=== PATIENT | male | born 1935 | race African-American/Black ===

== ENCOUNTER 2018-02-22 16:42 | Inpatient (IN) | payer OTHER ==
[2018-02-22] VITALS (13 sets, daily range): BP systolic 124–168; BP diastolic 74–105; TEMP 98.1–98.2
[~2018-02-22] VITALS: Ht 165.1 cm; Wt 66.8 kg
[~2018-02-22 16:42] MED LIST: CALCIUM/VITAMIN1 CAP PO; CETIRIZINE10 MG PO; CLOPIDOGREL75 MG PO; COMBIGAN0.2 MG/0.5 OP; DITROPAN XL15 M1 PO; DULCOLAX10 MG RE; ESCI10TA PO; ESOMEPRAZOLE MA20 MG PO; GABA300C2 PO; KEPPRA 500MG TAB PO; LATANOPROST0.005 % OP; LORA0.5T17 PO; MAGN400T4 PO; MAGNESIUM OXID400 M1 PO; QUET25TA2 PO; QUETIAPINE25 MG PO; SIMV40TA57 PO; STOOL SOFTNR100 MG PO; TAMSULOSIN0.4 MG PO; TRAM50TA PO; UNITH DIRECT50 MCG PO; ZANTAC300 MG PO; [UNRECOGNIZED DRUG - OTHER] PO
[2018-02-22 18:07] LABS: PLATELET COUNT 225 K/uL (142-355)
[2018-02-22 18:27] LABS: POTASSIUM 3.4 mmol/L (3.6-5.2); SODIUM 144 mmol/L (136-145)
[2018-02-22 20:18] LABS: PARTIAL THROMBOPLASTIN TIME 25.9 SECONDS (24.5-33.6)
[2018-02-23] VITALS (25 sets, daily range): BP systolic 130–178; BP diastolic 69–110; TEMP 97.8–98.4; Ht 165.1 cm; Wt 66.8 kg
[2018-02-23 05:45] LABS: PLATELET COUNT 222 K/uL (142-355)
[2018-02-23 05:55] LABS: POTASSIUM 3.4 mmol/L (3.6-5.2)
[2018-02-23] MEDS ORDERED: RANI150T78 PO (08:45)
[2018-02-23] MEDS ORDERED: METAMUCIL0.52 GM PO (08:56)
[2018-02-23] MEDS ORDERED: ZIPR20IN IM (09:00)
[2018-02-23] MEDS ORDERED: BRIM0.2S OPTH (09:09)
[2018-02-23] MEDS ORDERED: ALUM-67 PO (10:13)
[2018-02-23] MEDS ORDERED: TYLENOL325 MG OR (10:15)
[2018-02-23] MEDS ORDERED: MILK OF MAGNESI1 SU1 PO (10:16)
[2018-02-23] MEDS ORDERED: INSUINJ20 SC (10:20)
[2018-02-24] VITALS (24 sets, daily range): BP systolic 59–165; BP diastolic 42–117; TEMP 97.8–98.5
[2018-02-24 05:59] LABS: PLATELET COUNT 201 K/uL (142-355)
[2018-02-24 06:15] LABS: POTASSIUM 2.8 mmol/L (3.6-5.2)
[2018-02-25] VITALS (24 sets, daily range): BP systolic 130–181; BP diastolic 80–105; TEMP 97.8–98.9
[2018-02-25 08:26] LABS: PLATELET COUNT 221 K/uL (142-355)
[2018-02-25 08:39] LABS: POTASSIUM 4.2 mmol/L (3.6-5.2)
[2018-02-26] VITALS (24 sets, daily range): BP systolic 96–156; BP diastolic 55–94; TEMP 97.4–98.5
[2018-02-26 08:20] LABS: PLATELET COUNT 200 K/uL (142-355)
[2018-02-26 08:59] LABS: POTASSIUM 3.9 mmol/L (3.6-5.2)
[2018-02-27] VITALS (22 sets, daily range): BP systolic 101–149; BP diastolic 63–104; TEMP 97.2–98.4
[2018-02-27 08:19] LABS: PLATELET COUNT 198 K/uL (142-355)
[2018-02-27 08:36] LABS: POTASSIUM 4.3 mmol/L (3.6-5.2)
[2018-02-28] VITALS (24 sets, daily range): BP systolic 84–159; BP diastolic 64–117; TEMP 97.2–99.8
[2018-02-28 05:27] LABS: PLATELET COUNT 206 K/uL (142-355)
[2018-02-28 05:41] LABS: POTASSIUM 4.3 mmol/L (3.6-5.2)
[2018-03-01] VITALS (22 sets, daily range): BP systolic 90–140; BP diastolic 67–93; TEMP 97.7–98.9
[2018-03-01 06:17] LABS: PLATELET COUNT 185 K/uL (142-355)
[2018-03-01 06:29] LABS: POTASSIUM 3.9 mmol/L (3.6-5.2)
[2018-03-02] VITALS (27 sets, daily range): BP systolic 100–160; BP diastolic 47–110; TEMP 97.8–101.1
[2018-03-02 05:48] LABS: PLATELET COUNT 181 K/uL (142-355)
[2018-03-02 06:00] LABS: POTASSIUM 3.8 mmol/L (3.6-5.2)
[2018-03-03] VITALS (26 sets, daily range): BP systolic 70–145; BP diastolic 52–99; TEMP 97.8–100.5
[2018-03-03 06:34] LABS: PLATELET COUNT 188 K/uL (142-355)
[2018-03-03 06:47] LABS: POTASSIUM 4.4 mmol/L (3.6-5.2)
[2018-03-04] VITALS (29 sets, daily range): BP systolic 71–127; BP diastolic 47–75; TEMP 97.5–100.3
[2018-03-04 06:06] LABS: PLATELET COUNT 173 K/uL (142-355)
[2018-03-04 14:57] LABS: POTASSIUM 3.8 mmol/L (3.6-5.2)
[2018-03-05] VITALS (23 sets, daily range): BP systolic 91–133; BP diastolic 58–99; TEMP 98–98.8
[2018-03-05 06:21] LABS: PLATELET COUNT 167 K/uL (142-355)
[2018-03-05 06:35] LABS: POTASSIUM 3.9 mmol/L (3.6-5.2)
[2018-03-06] VITALS (11 sets, daily range): BP systolic 95–1052; BP diastolic 52–87; TEMP 97.8–98.9
[2018-03-06 06:04] LABS: PLATELET COUNT 207 K/uL (142-355)
[2018-03-06 06:24] LABS: POTASSIUM 4.1 mmol/L (3.6-5.2)
[2018-03-06] MEDS ORDERED: KEPPRA1000 MG PEG (17:33)
[2018-03-06] MEDS ORDERED: HYDRALAZINE25 MG PEG (17:34)
[2018-03-06] MEDS ORDERED: 904272561 PEG (17:35)
[2018-03-06] MEDS ORDERED: DITROPAN XL15 M1 PEG (17:36)
[2018-03-06] MEDS ORDERED: LEXAPRO10 MG PEG (17:37)
[2018-03-06] MEDS ORDERED: SEROQUEL50 MG PEG (17:38)
[2018-03-06] MEDS ORDERED: METAMUCIL0.52 GM PEG (17:38)
[2018-03-06] MEDS ORDERED: LEVO0.0529 PEG (17:40)
[2018-03-06] MEDS ORDERED: SIMV40TA57 PEG (17:41)
[2018-03-06] MEDS ORDERED: TAMS0.4C PEG (17:41)
[2018-03-06] MEDS ORDERED: CLOP75TA2 PEG (17:42)
[2018-03-06] MEDS ORDERED: LEVE100S PEG (17:43)
[2018-03-06] MEDS ORDERED: PANTOPRAZOLE 40MG TA PEG (17:44)
[2018-03-06] MEDS ORDERED: SOD CHLORIDE1 GM PEG (17:44)
[2018-03-06] MEDS ORDERED: REQUIP0.25 MG PEG (17:45)
[2018-03-06] MEDS ORDERED: GABA100C2 PEG (17:45)
[2018-03-06] MEDS ORDERED: MAG OXIDE400 M2 PEG (17:47)
[2018-03-06] MEDS ORDERED: HYDRALAZINE20 MG/ML IJ (17:48)
[2018-03-06] MEDS ORDERED: TYLENOL RE (17:52)
[2018-03-06] MEDS ORDERED: INSU100P SC (17:53)
[2018-03-06] MEDS ORDERED: ENSURE PEG (17:57)
== END 2018-03-06 13:30 | disposition other institution (70) | DRG 100 ==
LOC: ICU 16:42
PROC: 0DH63UZ Insertion of Feeding Device into Stomach, Percutaneous Approach (ICD-10-PCS; principal; 2018-03-02)
DX: G40.89 Other seizures (principal); G93.49 Other encephalopathy; E46 Unspecified protein-calorie malnutrition; E83.42 Hypomagnesemia; I10 Essential (primary) hypertension; E78.4 Other hyperlipidemia; N40.0 Benign prostatic hyperplasia without lower urinary tract symptoms; I95.89 Other hypotension; E11.9 Type 2 diabetes mellitus without complications; K21.9 Gastro-esophageal reflux disease without esophagitis; E03.8 Other specified hypothyroidism; J30.89 Other allergic rhinitis; Z86.73 Personal history of transient ischemic attack (TIA), and cerebral infarction without residual deficits; R13.12 Dysphagia, oropharyngeal phase; R26.89 Other abnormalities of gait and mobility; R62.7 Adult failure to thrive; E87.6 Hypokalemia; E88.09 Other disorders of plasma-protein metabolism, not elsewhere classified
CPT/HCPCS: 36415; 36591; 80048; 80053; 81000; 82140; 82542; 82550; 82553; 82570; 82962; 83605; 83615; 83735; 83880; 83930; 83935; 84300; 84443; 84484; 85027; 85610; 85730; 87070; 87077; 87185; 87186; 87205; 93005; 94760; J0360; J1940; J1953; J2001; J2060; J2270; J2704; J3475; J3480; J3486; J3490

== ENCOUNTER 2018-03-20 11:15 | Inpatient (IN) | payer OTHER ==
[2018-03-20] VITALS (20 sets, daily range): BP systolic 82–130; BP diastolic 47–83; TEMP 98.8–99.3; Ht 165.1 cm; Wt 61.2 kg
[~2018-03-20] VITALS: Ht 165.1 cm; Wt 61.2 kg
[~2018-03-20 11:15] MED LIST changes: +904272561 PEG; +ALUM-67 PO; +BRIM0.2S OPTH; +CLOP75TA2 PEG; +DITROPAN XL15 M1 PEG; +ENSURE PEG; +GABA100C2 PEG; +HYDRALAZINE20 MG/ML IJ; +HYDRALAZINE25 MG PEG; +INSU100P SC; +INSUINJ20 SC; +KEPPRA1000 MG PEG; +LEVE100S PEG; +LEVO0.0529 PEG; +LEXAPRO10 MG PEG; +MAG OXIDE400 M2 PEG; +METAMUCIL0.52 GM PEG; +METAMUCIL0.52 GM PO; +MILK OF MAGNESI1 SU1 PO; +PANTOPRAZOLE 40MG TA PEG; +RANI150T78 PO; +REQUIP0.25 MG PEG; +SEROQUEL50 MG PEG; +SIMV40TA57 PEG; +SOD CHLORIDE1 GM PEG; +TAMS0.4C PEG; +TYLENOL RE; +TYLENOL325 MG OR; +ZIPR20IN IM
--- NOTE | 2018-03-20 14:48 | NUR ---
PATIENT YELLING OUT AND REMOVING BP CUFF. MULTIPLE ATTEMPTS TO CLIMB OUT OF BED. TRIED TO REDIRECT BUT HAVE BEEN UNSUCCESSFUL. HALDOL 5MG IV GIVEN AT THIS TIME.
--- NOTE | 2018-03-20 15:03 | NUR ---
VERIFIED PEG PLACEMENT WITH AIR BOLUS. KAYEXALATE GIVEN WITH H2O FLUSH BEFORE AND AFTER.
[2018-03-21] VITALS (24 sets, daily range): BP systolic 98–156; BP diastolic 52–133; TEMP 98.5–99.9
--- NOTE | 2018-03-21 00:17 | NUR ---
03/20/2018 @ 2245 PT. TALKING LOUDLY AND PULLING AT IV SITE AND ATTEMPTING TO CLIMB OUT OF BED, ATIVAN 1MG GIVEN IV. WILL CONTINUE TO MONITOR. 03/20/2018 @ 2330 PT. RESTING QUIETLY WITH EYES CLOSED. NAD NOTED. WILL CONTINUE TO MONITOR.
[2018-03-21 05:41] LABS: PLATELET COUNT 207 K/uL (142-355)
--- NOTE | 2018-03-21 05:57 | NUR ---
PATIENT IS IN ICU AND SCREENED AND PRESENTLY NO DIET ORDER. IBW 136+/-10% AND IS AT 153.5 LBS. AND IS 113%IBW, BMI 25,6 OVERWIEGHT FOR HT/WT RATIO. KCAL NEEDS [phone], PROTEIN NEEDS 61-71 GRAMS, FLUID NEEDS = [phone] ML/CC PER DAY. ADD A DIET ORDER AND IF NOT EATING NEDS NUTRITION INTERVENTION TO MEET THE KCAL, PROTEIN AND FLUID NEEDS ABOVE. ADMITTED WITH RESPIRATOY FAILURE AND ELEVATED WBC.
[2018-03-21 07:07] LABS: POTASSIUM 4.6 mmol/L (3.6-5.2)
--- NOTE | 2018-03-21 08:30 | NUR ---
PT RESTING QUIETLY HOB UP. RECIEVED ATIVAN THIS AM BEFORE SHIFT CHANGE MEDS EFFECTIVE RESTING QUIETLY. JUDE LIZ CAFETERIA ASSOCIATE AND DR SINGH VISITED CHECKED PT.
--- NOTE | 2018-03-21 10:30 | NUR ---
TURNED AND REPOSITIONED IN BED HOB UP RESTING ON LEFT SIDE. AWAKE AT TIMES GARABLED SPEECH.
--- NOTE | 2018-03-21 12:03 | NUR ---
FAMILY MEMBERS CALLED LEFT PASSWORD. REPORT PT CONDITION. X RAY DEPT HERE ABD SERIES DONE. PT AWAKE, TALKING UNABLE TO UNDERSTAND.
--- NOTE | 2018-03-21 14:11 | NUR ---
CALLED TO JUDE LIZ TENNIS BALL COVERER HAND REPORT FINDINGS FROM ACUTE ABD. RECIEVED NEW ORDERS.
--- NOTE | 2018-03-21 14:53 | NUR ---
ATTEMPT TO EXPLAIN PROCEDURE TO PATIENT, PATIENT HAS BEEN CALLING OUT GETTING LOUDER. PERFRORMED IN AND OUT CATH 10 FR RED RUBBER CATH. AFTER CLEANING PT. OBTAINED CLEAR GERARDO URINE SPEC TO LAB. PT TURNED TO LEFT SIDE RECIEVED FLEETS ENEMA ORDERED. PATIENT ON HIS LEFT SIDE WILL TRY TO HOLD ON LEFT SIDE.
--- NOTE | 2018-03-21 15:45 | NUR ---
INC BROWN SOFT STOOL CLEANED X3 SMALL AMOUT EACH TIME. RESTING EASIER MEDS EFFECTIVE. RICHA CARE DONE. FEET UP ON PILLOWS RIGHT HEEL HAS BLISTER HEELS OFF BED.
--- NOTE | 2018-03-21 16:10 | NUR ---
RESTING EASIER, MEDS EFFECTIVE. HOB UP.
--- NOTE | 2018-03-21 17:36 | NUR ---
PT PASSED MOD AMOUNT SOFT LIQUID BROWN STOOL TURNED AND REPOSITIONED CLEANED SPEC TO LAB FOR OCCULT BLOOD. . SKIN CARE DONE. FEET UP ON PILLOWS. HEELS OFF BED.
[2018-03-22] VITALS (23 sets, daily range): BP systolic 138–168; BP diastolic 70–90; TEMP 97.9–100.2
--- NOTE | 2018-03-22 01:05 | NUR ---
PT INCONTIENT OF STOOL. PT HAD LARGE BROWN STOOL. PT WAS CLEANED AND CALAMAZINE WAS APPLIED TO HIS BUTTOCKS. PT WAS REPOSITIONED TO HIS BACK.
[2018-03-22 05:43] LABS: PLATELET COUNT 251 K/uL (142-355)
[2018-03-22 05:58] LABS: POTASSIUM 3.5 mmol/L (3.6-5.2)
--- NOTE | 2018-03-22 10:11 | NUR ---
0927-RADIOLOGY AT BEDSIDE FOR CHEST X RAY
--- NOTE | 2018-03-22 12:41 | NUR ---
PT AGITATED, HOLLERING OUT, AND TRYING TO PULL AT IV TUBING AND TELEMETRY. ASSESSED FOR PAIN, NO S/S OF PAIN NOTED AT THIS TIME. ATIVAN 1MG IV GIVEN, WILL CONTINUE TO MONITOR.
--- NOTE | 2018-03-22 20:00 | NUR ---
PT HAS NC ON AT 5LPM BUT IS A MOUTH BREATHER, O2 SAT DROPPED TO 87-84% ON NC, RESPIRATORY CALLED TO BEDSIDE. NO ACUTE DISTRESS NOTED BUT PT CONTINUES TO BREATH RAPIDLY.
--- NOTE | 2018-03-22 20:08 | NUR ---
PT RESTLESS AND AGITATED, RESP RATE RAPID 40 AND RESPIRATORY AT BEDSIDE MENTIONED IN PREVIOUS NOTES. GAVE PT ATIVAN 1MG IVP PRN. WILL MONITOR CLOSELY, RAILS UP X3, BED IN LOW POSITION, HOB ELEVATED, NO ACUTE DISTRESS NOTED.
--- NOTE | 2018-03-22 20:09 | NUR ---
SPO2 DROPPED TO 84% ON N/C @ 5 LPM. PLACED PT ON NRB @ 100% FIO2 WITHA SPO2 OF 97%. TOLS WELL.
--- NOTE | 2018-03-22 20:20 | NUR ---
PT APPEARS ALITTLE MORE CALM SINCE PRN MEDICATION GIVEN BUT IS STILL RESTLESS. WILL CONTINUE TO MONITOR CLOSELY, RAILS UP X3, BED IN LOW POSITION.
--- NOTE | 2018-03-22 21:30 | NUR ---
CHANGED NRB TO V/M @ 50% FIO2. GTO491%, HR 98. NURSE AT BEDSIDE. TOLS WELL.
--- NOTE | 2018-03-22 23:14 | NUR ---
PT RESTLESS AT TIMES AND TALKING OUT LOUDLY, NO ACUTE DISTRESS NOTED, RESP RATE REMAINS RAPID, IV INTACT WITH FLUID ONGOING, VENTI-MASK IN USE. CHANGED PT'S DEPEND AND REPOSITIONED PT TO L SIDE, ATTEMPTED TO ELEVATED FEET OFF OF BED ON PILLOWS BUT PT MOVES FEET OFF OF PILLOWS, WILL CONTINUE TO MONITOR CLOSELY, RAILS UP X3, BED IN LOW POSITION.
[2018-03-23] VITALS (25 sets, daily range): BP systolic 124–169; BP diastolic 76–97; TEMP 98.3–101
--- NOTE | 2018-03-23 00:16 | NUR ---
PT VERY RESTLESS AND APPEARS AGITATED, REPOSITIONING IN BED DID NOT HELP, HOLDING ARMS UP IN AIR AND PULLING VENTI-MASK OFF AT TIMES, MUMBLING OUT LOUD CONSTANTLY. ELECTRONIC PAGE MAKEUP SYSTEM OPERATOR REMAINS AT PT'S BEDSIDE. PEG TUBE INTACT TO ABD, IV INTACT.
--- NOTE | 2018-03-23 00:30 | NUR ---
PT HAS BEEN RESTLESS AND AGITATED FOR APPROX 15 MINUTES, TALKING OUT LOUDLY CONTANTLY, MOVING ARMS AROUND AND PULLING AT CORDS, REPOSITIONED PT WITH NO IMPROVEMENT. GAVE HALDOL 5MG SLOW IVP PER PRN ORDERS, WILL CONTINUE TO MONITOR CLOSELY. IV INTACT, DEPEND DRY, RESP RATE REMAINS RAPID, VENTI-MASK IN USE, RAILS UP X3, BED IN LOW POSITION.
--- NOTE | 2018-03-23 00:55 | NUR ---
PT REMAINS RESTLESS AND AGITATED, RESP RATE REMAINS RAPID, PT DEPEND CHANGED AND PT REPOSITIONED, IV INTACT, SOCIAL MEDIA EDITOR IN USE, VITALS BEING MONITORED. PT TALKING OUT LOUD ALMOST CONSTANTLY AND MOVING HANDS ALL AROUND. REMAINS ON VENTI-MASK WITH O2 SAT OF 97%. WILL MONITOR, RAILS UP X3, BED IN LOW POSITION.
--- NOTE | 2018-03-23 01:53 | NUR ---
RESTING QUIETLY IN BED WITH EYES CLOSED, NO S/S OF PAIN OR DISTRESS NOTED, RESP RATE 34 NONLABORED, VENIT-MASK IN USE WITH FIO2 OF 50% SAT 100%, DEPEND DRY, IV INTACT TO R AC WITH NS INFUSING AT 75ML/HR, FEET ON PILLOW BUT PT MOVES FEET OFF PILLOWS(RED SPOTS ON TOP OF TOES ON L FOOT AND RED SPOT ON HEEL OF R FOOT), WILL CONTINUE TO MONITOR CLOSELY, RAILS UP X3, BED IN LOW POSITION.
--- NOTE | 2018-03-23 04:30 | NUR ---
PT VERY AGITATED AND RESTLESS, MUMBLING OUT LOUDLY CONSTANTLY, ATTEMPTED TO REASSURE PT BUT PT REMAINS AGITATED. DEPEND CHANGED DUE TO INCONTINENT OF URINE AND PT REPOSITIONED. REMAINS RESTLESS AND AGITATED. PT BECOMES RESTLESS WHEN HE NEEDS DEPEND CHANGED AND THEN BECOMES EVEN MORE RESTLESS AND AGITATED WHEN STAFF CHANGES HIM. RESISTS STAFF WHILE CHANGING.
--- NOTE | 2018-03-23 04:51 | NUR ---
PT REMAINS AGITATED AND VERY RESTLESS, MUMBLING OUT LOUDLY ALMOST CONSTANTLY. MOUTH CARE PROVIDED AND PT REPOSITIONED AGAIN IN ATTEMPT TO CALM PT. NO CHANGE IN PT. RESP RATE REMAINS RAPID. IV INTACT WITH FLUID ONGOING, RESP RATE NONLABORED, VENTI-MASK IN USE, TAPPER SUPERVISOR IN USE, VITALS BEING MONITORED, WILL MONITOR CLOSELY, RAILS UP X3, BED IN LOW POSITION. PLACE PT'S FEET ON PILLOWS TO ELEVATED OFF OF BED BUT PT MOVES FEET OFF OF PILLOWS.
--- NOTE | 2018-03-23 05:42 | NUR ---
PT REMAINS VERY RESTLESS AND AGITATED, MUMBLING OUT LOUDLY IN BED CONSTANTLY, REASSURED PT WITH NO CHANGE IN STATUS, PT BECOMES MORE AGITATED WHEN STAFF GIVES CARE TO HIM. GAVE ATIVAN 1MG IVP PRN AT THIS TIME, WILL MONITOR CLOSELY.
[2018-03-23 05:48] LABS: PLATELET COUNT 265 K/uL (142-355)
--- NOTE | 2018-03-23 06:00 | NUR ---
PT CONTINUES TO BE VERY RESTLESS AND AGITATED, MOVING AROUND IN BED AND MUMBLING CONSTANTLY.
--- NOTE | 2018-03-23 06:20 | NUR ---
RESTING IN BED WITH EYES CLOSED, NO S/S OF PAIN OR DISTRESS NOTED, IV INTACT WITH FLUID ONGOING, RESP RATE REMAINS RAPID, VENTI-MASK IN USE, NUCLEAR MEDICINE TECHNICIAN IN USE, VITALS BEING MONITORED, PT REPOSITIONED TO R, DEPEND CHANGED, WILL MONITOR, RAILS UP X3, BED IN LOW POSITION.
[2018-03-23 06:55] LABS: POTASSIUM 3.1 mmol/L (3.6-5.2)
--- NOTE | 2018-03-23 08:06 | NUR ---
PT AWAKE REPOSITIONED IN BED RESP RAPID 38 MIN SAT 97%. HOB UP. RECIEVED AM LABS REPORT TO JUDE LIZ PHOTOGRAPHIC LABORATORY SUPERVISOR.
--- NOTE | 2018-03-23 08:39 | NUR ---
LABS REPORTED TO JUDE LIZ GAGE MAKER. RECIEVED NEW ORDERS.
--- NOTE | 2018-03-23 10:29 | NUR ---
PATIENT RECIEVED BATH BED CHANGE. INC URINE. RICHA CARE DONE. HOB UP. CHECKED PEG NO RESIDUAL. POTASSIUM DILUTED IN 60 ML WATER GAVE TO PT VIA PEG. HOB UP TURNED ON LEFT SIDE.
--- NOTE | 2018-03-23 10:57 | NUR ---
PATIENT ANXIOUS CALLING OUT,. RESP RATE CONTINUES TO BE HIGH REPORT TO JUDE GUY. PT REPOSITIONED NO GOOD. GAVE GEODON 10 DC RGM FOR ANXIETY
--- NOTE | 2018-03-23 11:46 | NUR ---
MEDS EFFECTIVE PT RESTING QUIETLY RESP RATE HAS DROPPED TO 22 MIN.
--- NOTE | 2018-03-23 14:03 | NUR ---
REPOSITIONED ON HIS SIDE TOLD PT WHAT WE WERE ABOUT TO DO. PT RESP RATE HAS GOTTEN A LITTLE FASTER. 30 BREATHS MIN. RESTING EASIER. NOTED WHEN CLEANING PT ACTED LIKE WAS TRYING TO HAVE A BM. CHECKED PT FOR IMPACTION, ONLY FELT SOFT STOOL. MANUALLY REMOVED SOME. NO HARD BM FELT. PT CLEANED UP AND REPOSITIONED.
--- NOTE | 2018-03-23 16:49 | NUR ---
PT BECOMING MORE RESTLESS INCREASED RESP. RATE 40 MIN. O2 SAT 96%. WEARING VENTI MASK. ATIVAN 1 MG GIVEN IV FOR ANXIETY. ASSISTED WITH POSITION CHANGE.
--- NOTE | 2018-03-23 17:55 | NUR ---
RESTING A LITTLE EASIER, RESP RATE CONTINUES TO BE FAST 38 MIN SAT 95% HOB UP PT WEARING VENTI MASK.
--- NOTE | 2018-03-23 18:20 | NUR ---
CALLED TO ER REPORT PT CONDITION RAPID RESP RATE 40 MIN. RESP DEPT HERE ASKED TO LOOK AT PT NOTED RAPID BREATHING RALES LUNG SOUNDS. SPOKE WITH DR VIPUL ARMAS ORDERER FOR RACHIX WILL COME TO SEE PT.
--- NOTE | 2018-03-23 18:44 | NUR ---
RECIEVED LASIX 80 MG SLOW OVER 3 MIN ORDERED. HOB UP RESP 42 MIN. SAT 92%. DAUGHTER HERE FOR VISIT.
--- NOTE | 2018-03-23 19:01 | NUR ---
EXPLAINED TO DAUGHTER WHAT WE WERE TRYING TO DO BY GIVING LASIX. NOEMI FLUID OFF. VERBALIZED UNDERSTANDING.
--- NOTE | 2018-03-23 19:51 | NUR ---
DR MIKE MATTHEW HERE, CHECKED PT RECIEVED NEW ORDERS. TALKED WITH FAMILY MEMBERS. RESP 38 VOIDED 250 IN URINAL. RECIEVED ORDER FOR MOSHE BOWIE WORKING.
--- NOTE | 2018-03-23 20:00 | NUR ---
FAMILY MEMBERS LEFT RECIEVED NEW ORDERS. EXPLAINED PROCEDURE TO PT. HAS VOIDED X2 SINCE LASIX. CONTINUES TO HAVE RAPID RESP. PT CLEANED INSERTED 16 FR MESA CATH. GOOD URINE RETURN MESA CLAMPED OUTPUT 1200 AND STILL COMING. CATH CARE DONE MESA SECURED. LEFT CLAMPED.
--- NOTE | 2018-03-23 22:00 | NUR ---
SPOKE WITH DR. Mouna MATTHEW IN ER ABOUT PT'S AX TEMP OF 101.0 AT 2134, ALSO INFORMED HIM THAT PT'S RESP RATE IS RAPID AGAIN AT 40 WITH NO ACUTE DISTRESS, O2 SAT 99% ON VENTI-MASK WITH FIO2 OF 50%, PT HAS HAD OUTPUT OF 2200 TOTAL IN MESA WITH APPRO 1000 MORE IN MESA CATH BAG AT THIS TIME. QUALITY NURSE CLAMPING MESA TUBING FOR SHORT PERIOD AND NOW HAS UNCLAMPED IT. NEW ORDER FOR TYLENOL 650MG VIA PEG TUBE Q 6 HOURS PRN FOR FEVER OR PAIN, HOLD LASIX 40MG IVP AT 0600 ON 03/24/18. T.O. R&V DR. Mouna MATTHEW/DENI MELO RN.
--- NOTE | 2018-03-23 23:00 | NUR ---
AX TEMP IS 100.9. WILL CONTINUE TO MONITOR, ONLY SHEET ON PT AND FAN BLOWING ON PT. PT RESTING WITH EYES CLOSED BUT RESP RATE VERY RAPID 44, O2 SAT REMAINS 100-97% ON VENTI-MASK WITH FIO2 OF 50%, DOCTOR IS AWARE OF PT'S RESP RATE. RAILS UP, BED IN LOW POSITION.
[2018-03-24] VITALS (23 sets, daily range): BP systolic 120–153; BP diastolic 69–88; TEMP 98.3–99.6
--- NOTE | 2018-03-24 00:22 | NUR ---
PT LAYING IN BED WITH EYES CLOSED WITH NO ACUTE DISTRESS NOTED, IV INTACT TO R AC WITH FLUID ONGOING, RESP RATE REMAIN RAPID AT 38-40, 16F MESA PATENT DRAINING TO BEDSIDE, VENTI-MASK IN USE WITH FIO2 OF 50% AND O2 SAT OF 100%, MAINSPRING WINDER AND OILER NOT PICKING UP HEART RATE WELL SO PT NOW HOOKED UP TO PORTABLE V/S MACHINE WITH HEART RATE OF 94, PULSE OX SHOWS HEART RATE OF 96, FEET ELEVATED ON PILLOW, HOB ELEVATED, TEMP IS 99.1 AX. HOB REMAINS ELEVATED. WILL MONITOR, RAILS UP X3, BED IN LOW POSITION.
--- NOTE | 2018-03-24 01:00 | NUR ---
PT RESTING WITH EYES CLOSED, NO DISTRESS OR PAIN NOTED, IV INTACT TO R AC WITH 1/2 NS INFUSING AT 75ML/HR NO PROBLEMS NOTED TO SITE, MESA PATENT DRAINING TO BEDSIDE, RESP RATE 26 AND HAS SLOWED DOWN SOME, DENTAL HYGIENIST MOBILE COORDINATOR IN USE, VITALS BEING MONITORED, PEG TUBE INTACT TO ABD, DEPEND DRY, FEET ELEVATED ON PILLOW, WILL MONITOR, RAILS UP X3, BED IN LOW POSITION, HOB REMAINS ELEVATED.
--- NOTE | 2018-03-24 02:00 | NUR ---
PT RESTING WITH EYES CLOSED, NO DISTRESS NOTED, RESP RATE 32, VENTI-MASK IN USE, REPOSITIONED PT TO HIS BACK, FEET ELEVATED ON PILLOW, WILL MONITOR, RAILS UP X3, BED IN LOW POSITION.
--- NOTE | 2018-03-24 03:18 | NUR ---
PT RESTING WITH EYES CLOSED, NO S/S OF PAIN OR DISTRESS NOTED, IV INTACT WITH FLUID ONGOING, RESP RATE REMAINS RAPID AT 28(BUT DECREASES TO HIGH 20s-LOW 30s THEN INCREASES AGAIN OFF AND ON TO 40s), LUNGS COARSE TO AUSCULTATION, MESA PATENT DRAINING TO BEDSIDE, VITALS BEING MONITORED, VENTI-MASK WITH FIO2 OF 50% IN USE WITH O2 SAT OF 99%, PERL DEVELOPER IN USE WITH PULSE RATE OF 96, FEET ELEVATED OFF OF BED ON PILLOWS, PT HAS BEEN CALM TONIGHT AND NO AGITATION OR RESTLESSNESS NOTED DURING SHIFT. PEG TUBE INTACT TO ABD. WILL MONITOR, RAILS UP, BED IN LOW POSITION.
--- NOTE | 2018-03-24 04:00 | NUR ---
MOUTH CARE COMPLETED AT THIS TIME, PT REPOSITIONED, NO DISTRESS NOTED, IV INTACT, MESA PATENT, FEET ELEVATED ON PILLOW, CLARK DRIVER IN USE, RESP RATE REMAINS RAPID, VENTI-MASK IN USE, WILL MONITOR, RAILS UP, BED IN LOW POSITION.
[2018-03-24 05:12] LABS: PLATELET COUNT 262 K/uL (142-355)
[2018-03-24 05:26] LABS: POTASSIUM 3.2 mmol/L (3.6-5.2)
--- NOTE | 2018-03-24 07:15 | NUR ---
AWAKE WITH EYES OPEN. APPEARS TO BE LOOKING STRAIGHT UP AND REACHING UPWARD. RESPIRATORY RATE NOTED.
[2018-03-24] MEDS ORDERED: CLIN300C PO (08:12)
[2018-03-24] MEDS ORDERED: LORA0.5T17 PO (08:13)
[2018-03-24] MEDS ORDERED: TRAM50TA PO (08:15)
[2018-03-24] MEDS ORDERED: BUSPIRONE10 MG PO (08:20)
--- NOTE | 2018-03-24 10:00 | NUR ---
REPOSITIONED ON LT SIDE. RICHA AND MESA CARE COMPLETED AT THIS TIME.
--- NOTE | 2018-03-24 11:00 | NUR ---
DAUGHTER CALLED TO CHECK ON FATHERS STATUS.
--- NOTE | 2018-03-24 12:20 | NUR ---
NOTIFIED BROOKS HAMEED OF INCREASED RESPIRATORY RATE. INSTRUCTED TO GIVE GEOGON AT THIS TIME.
--- NOTE | 2018-03-24 14:24 | NUR ---
ENEMA GIVEN. TOLERATED WELL.
--- NOTE | 2018-03-24 14:50 | NUR ---
BETY REPORTED TO BROOKS CARRINGTON. NEW ORDERS RECEIVED.
--- NOTE | 2018-03-24 15:15 | NUR ---
GABRIEL HAMEEDP AT BEDSIDE.
--- NOTE | 2018-03-24 15:38 | NUR ---
DR. SINGH NOTIFIED OF RADIOLOGY BEING UNABLE TO COMPLETE REQUESTED CT SCAN D/T LABS.
--- NOTE | 2018-03-24 20:26 | NUR ---
PT TOLERATED RESP TREATMENT. PT IS CALMLY RESTING.
[2018-03-25] VITALS (24 sets, daily range): BP systolic 108–145; BP diastolic 58–95; TEMP 97.9–99.9
--- NOTE | 2018-03-25 04:44 | NUR ---
EYES ARE OPEN. PT HAS HAD RESP FROM 24 TO 32 A MINUTE THIS SHIFT. EMPTIED 2000 ML OF CLEAR URINE. PT DOES RESPOND ORALLY.
[2018-03-25 06:16] LABS: PLATELET COUNT 280 K/uL (142-355)
[2018-03-25 06:26] LABS: POTASSIUM 3.1 mmol/L (3.6-5.2)
--- NOTE | 2018-03-25 08:00 | NUR ---
RECIEVED REPORT PT RESTING QUIETLY. HOB UP VITAL SIGNS STABLE NO ACUTE DISTRESS.
--- NOTE | 2018-03-25 09:30 | NUR ---
RECIEVED AM MEDS PT TURNED AND REPOSITIONED HOB UP. CHECKED PEG NO RESIDUAL. RECIEVED MED WITH WATER. [facility] PROMOTION MANAGER VISITED CHECKED PT. NOTED BROWN COLORED SECRETIONS AROUND PEG TUBE AREA CLEANED CLEANED WITH THERAWORX WIPE. REPOSITIONED ON RIGHT SIDE APPLIED CALAZIME OINT TO LEFT BUTTOCK. HEEL PROTECTORS ON HEELS OFF BED.
--- NOTE | 2018-03-25 12:22 | NUR ---
FAMILY MEMBERS HERE HERE FOR VISIT. TALKED WITH FAMILY FAMILY UPSET PT NOT ALERT NOT RESPONDING TO THE. PROVIDEDED COMFORT CARE.
[2018-03-26] VITALS (24 sets, daily range): BP systolic 113–144; BP diastolic 55–82; TEMP 97–99
--- NOTE | 2018-03-26 03:29 | NUR ---
PT WAS NOT GIVEN PO MEDS THROUGHT G TUBE. TUBE HAS RESIDUAL AND LEAKS. MEDS HELD AND DISPOSED. PT WITH COUGHING AND SECRETIONS TO THROAT. PT WAS GIVEN SPONGE BATH AND LINEN CHANGE. ORAL CARE GIVEN. RESP TREATMENT GIVEN.
--- NOTE | 2018-03-26 05:19 | NUR ---
PT IS MORE RESPONSIVE THIS AM. BLOOD DRAW FOR CBC AND CMP COMPLETED AND SENT TO LAB.
[2018-03-26 05:30] LABS: PLATELET COUNT 277 K/uL (142-355)
[2018-03-26 05:39] LABS: POTASSIUM 3.3 mmol/L (3.6-5.2)
--- NOTE | 2018-03-26 07:30 | NUR ---
REPOSITIONED PT IN BED HOB UP. AWAKE TALKING UNABLE TO UNDERSTAND. REPOSITIONED IN BED HOB UP. PT INC SMALL AMOUNT STOOL CLEANRD, RICHA CARE. SKIN CARE TURNED TO RIGHT SIDE. BLOOD SUGAR 176 RECIEVED 2UNITS REGULAR INSULIN.
--- NOTE | 2018-03-26 10:03 | NUR ---
HOB UP, MOUTH CARE BY FRANC BOWSER STUDENT NURSE. REMOVE LARGE AMOUT THICK WHITE SECRETION FROM TONGUE AND ROOF OF MOUTH. HOB UP PT CONTINUE WEARING O2 VIS NC AT 3L SAT 94%.
--- NOTE | 2018-03-26 12:11 | NUR ---
PT UP IN BED REPOSITIONED. FAMILY MEMBERS HERE TALKING WITH PATIENT, PT WANTS TO EAT, TALKED WITH FAMILY ABOUT HIS DIET. PT NEEDS STRICT NOTHING BY MOUTH FEED ONLY THROUGH PEG TUBE. HOB UP. SPOKE WITH NURSE PRACTIONER NEED TO WAIT UNTIL PT SEEN BY DIETARY.
--- NOTE | 2018-03-26 13:18 | NUR ---
REPORTS TO FAMILY THAT HE IS THIRSTY AND MOUTH FEELS NASTY. ORAL CARE PROVIDED AT THIS TIME. MOISTURIZER APPLIED TO TONGUE AND LIPS.
--- NOTE | 2018-03-26 15:30 | NUR ---
ASSISTED FROM BED TO RECLINER. SWABBED MOUTH WITH WATER PT CONTINUOUSLY ASKS FOR WATER.
--- NOTE | 2018-03-26 18:46 | NUR ---
ASSISTED FROM CHAIR TO BED. SMALL BOWEL MOVEMENT NOTED.
--- NOTE | 2018-03-26 20:23 | NUR ---
RESP AT BEDSIDE.
[2018-03-27] VITALS (23 sets, daily range): BP systolic 89–131; BP diastolic 50–73; TEMP 97.5–98.7
--- NOTE | 2018-03-27 04:45 | NUR ---
AM BLOOD COLLECTED FOR CMP AND CBC. PT ON ELECTROLYTE PROTOCAL. PT WAS TURNED AND ORAL CARE WAS GIVEN.
[2018-03-27 04:54] LABS: PLATELET COUNT 282 K/uL (142-355)
[2018-03-27 05:12] LABS: POTASSIUM 3.3 mmol/L (3.6-5.2)
--- NOTE | 2018-03-27 10:00 | NUR ---
PT VOICES C/O PAIN IN LEGS AND NECK. TRAMADOL 50MG GIVEN VIA G TUBE. PT LYING IN BED WITH EYES CLOSED. NAD NOTED.
--- NOTE | 2018-03-27 20:00 | NUR ---
PT RESTING WITH EYES CLOSED, NO S/S OF PAIN OR DISTRESS NOTED, RESP RATE NONLABORED WITH O2 AT 3LPM VIA NC, 18G IV INTACT TO R AC WITH D5W WITH 20MEQ OF KCL INFUSING AT 50ML/HR, COATING MIXER SUPERVISOR IN USE, MESA PATENT DRAINING TO BEDSIDE WITH CLEAR YELLOW URINE NOTED IN BAG, PEG TUBE INTACT TO ABD WITH NO PROBLEMS NOTED TO SITE, BS+, RADIAL AND PEDAL PULSES INTACT/EQUAL, HEEL PROTECTORS IN USE AND FEET ON PILLOWS, REPOSITIONED PT TO HIS BACK WITH HOB ELEVATED, WILL MONITOR, RAILS UP X3, BED IN LOW POSITION.
--- NOTE | 2018-03-27 20:55 | NUR ---
10ML RESIDUAL(APPEARS TO BE COLOR OF STOMACH ACIDS/BILE) NOTED VIA PEG TUBE, GAVE NIGHTLY MEDICATIONS VIA PEG AND FLUSHED BEFORE AND AFTER WITH 40ML WATER. WILL MONITOR CLOSELY.
--- NOTE | 2018-03-27 22:16 | NUR ---
PT AWAKE LAYING IN BED WITH NO DISTRESS NOTED, IV INTACT WITH FLUID ONGOING, RESP RATE NONLABORED, O2 AT 3LPM VIA NC, MESA PATENT, HEEL PROTECTORS IN USE, COUNTER CHECKER IN USE, REPOSITIONED TO L SIDE, FEET ELEVATED ON PILLOW, WILL MONITOR, RAILS UP, BED IN LOW POSITION, PEG TUBE INTACT AND HOB ELEVATED.
[2018-03-28] VITALS (22 sets, daily range): BP systolic 87–114; BP diastolic 50–74; TEMP 97–98.1
--- NOTE | 2018-03-28 00:25 | NUR ---
PT AWAKE OFF AND ON SEEMS RESTLESS, REPOSITIONED PT AND FEET ELEVATED ON PILLOWS, HEEL PROTECTORS IN USE, RESP RATE NORMAL AND NONLABORED, O2 AT 3LPM VIA NC, 18G IV INTACT TO R AC WITH NO PROBLEMS NOTED TO SITE AND D5W WITH 20MEQ KCL INFUSING AT 50ML/HR, MESA PATENT DRAINING TO BEDSIDE, SHRIMP CLEANER IN USE, ATTEMPTED TO REASSURE PT(PT'S PRIMARY LANGUAGE IS TELUGU), PEG TUBE INTACT WITH NO PROBLEMS NOTED AT SITE, HOB REMAINS ELEVATED, WILL MONITOR, RAILS UP X3, BED IN LOW POSITION.
--- NOTE | 2018-03-28 01:31 | NUR ---
PT RESTLESS AND MOANING OUT ALITTLE AT TIMES, GAVE PT TYLENOL 650MG RECTAL PRN FOR PAIN, WILL CONTINUE TO MONITOR CLOSELY.
--- NOTE | 2018-03-28 02:06 | NUR ---
PT NOW RESTING WITH EYES CLOSED AND LIGHT SNORING NOTED, NO S/S OF PAIN OR DISTRESS NOTED, REPOSITIONED TO R SIDE, RESP RATE NONLABORED, O2 AT 3LPM VIA NC, IV INTACT WITH FLUID ONGOING, HEEL PROTECTORS IN USE, FEET ON PILLOW, FUR NAILER IN USE, WILL MONITOR, RAILS UP X3, BED IN LOW POSITION.
--- NOTE | 2018-03-28 02:26 | NUR ---
PT AWAKE AND REMAINS CONFUSED, RESTLESS AT TIMES, REPOSITIONED PT TO BACK, HEEL PROTECTORS IN USE, RESP RATE NONLABORED, O2 IN USE, MESA PATENT DRAINING TO BEDSIDE, BOX TOE FLANGER STITCHDOWNS IN USE, NO S/S OF DISTRESS NOTED, WILL MONITOR, RAILS UP X3, BED IN LOW POSITION.
--- NOTE | 2018-03-28 04:10 | NUR ---
PT RESTING IN BED WITH EYES CLOSED, NO S/S OF PAIN OR DISTRESS NOTED, IV INTACT WITH FLUID ONGOING, RESP RATE NONLABORED, O2 AT 3LPM VIA NC, MESA PATENT DRAINING TO BEDSIDE, PEG TUBE INTACT, REPOSITIONED AND TURNED, HEEL PROTECTORS IN USE, HOB REMAINS ELEVATED, WILL MONITOR, RAILS UP X3, BED IN LOW POSITION.
[2018-03-28 06:34] LABS: PLATELET COUNT 244 K/uL (142-355)
[2018-03-28 06:52] LABS: POTASSIUM 3.8 mmol/L (3.6-5.2)
--- NOTE | 2018-03-28 10:00 | NUR ---
PLACEMENT VERIFIED BY AIR BOLUS. LESS THAN 10ML RESIDUAL NOTED AND REPLACED. 1 CAN 2CAL HHN GIVEN WITH 60ML FLUSH BEFORE AND AFTER. HOB ELEVATED. PATIENT TOLERATED FEEDING WELL.
--- NOTE | 2018-03-28 13:57 | NUR ---
PT VERY AGITATED AND YELLING OUT. GEODON IM GIVEN IN RT THIGH.
--- NOTE | 2018-03-28 15:15 | NUR ---
SITTING QUIETLY IN HIGH FOWLERS AT THIS TIME.
--- NOTE | 2018-03-28 16:10 | NUR ---
PLACEMENT VERIFIED. NO RESIDUAL NOTED. 1 2CAL HHN VIA PEG WITH 60ML H2O FLUSH BEFORE AND AFTER FEEDING. TOLERATED FEEDING WELL. TURNED AND REPOSITIONED IN HIGH FOWLERS ON LT SIDE.
--- NOTE | 2018-03-28 20:09 | NUR ---
PT RESTING IN BED WITH EYES CLOSED, NO S/S OF PAIN OR DISTRESS NOTED, 18G IV INTACT TO R AC WITH NO PROBLEMS NOTED TO SITE AND D5W WITH 20MEQ KCL INFUSING AT 50ML/HR, BS+, PEG TUBE INTACT TO ABD WITH NO S/S OF PROBLEMS NOTED TO SITE, RESP RATE EVEN AND NONLABORED, LUNGS CLEAR TO AUSCULTATION, O2 AT 3LPM VIA NC WITH SAT OF 99-98%, METAL FABRICATING SUPERVISOR IN USE, VITALS BEING MONITORED, RADIAL AND PEDAL PULSES INTACT/EVEN WITH NO SWELLING NOTED TO ARMS OR LEGS, HEEL PROTECTORS IN USE, FEET ELEVATED ON PILLOW, PT WAS REPOSITIONED TO HIS BACK AROUND 1909. PT AROUSES BRIEFLY TO DIVISION MERCHANDISE MANAGER TOUCHING HIM AND SEEMS CONFUSED BUT DOES NOT SPEAK JUST MUMBLES A FEW WORDS THEN APPEARS TO FALL BACK ASLEEP WITH EYES CLOSED, DOES NOT FOLLOW COMMANDS, WILL MONITOR CLOSELY, RAILS UP X3, BED IN LOW POSITION.
--- NOTE | 2018-03-28 21:20 | NUR ---
PT RESTING WITH EYES CLOSED AND NO DISTRESS NOTED, HOB ELEVATED. NOTE RESIDUAL VIA PEG IS 70ML OF YELLOW FLUID. FEEDING HELD AT THIS TIME BUT GAVE NIGHTLY MEDICATIONS VIA PEG. HOB REMAINS ELEVATED, WILL MONITOR CLOSELY, RAILS UP X3, BED IN LOW POSITION.
--- NOTE | 2018-03-28 23:15 | NUR ---
PT CONTINUES TO REST QUIETLY IN BED WITH EYES CLOSED, NO S/S OF PAIN OR DISTRESS NOTED, IV INTACT TO R AC WITH D5W WITH 20MEQ OF KCL INFUSING AT 50ML/HR, O2 AT 3LPM VIA NC, RESP RATE NONLABORED, MESA PATENT DRAINING TO BEDSIDE, HEEL PROTECTORS IN USE, FEET ELEVATED ON PILLOWS, REPOSITIONED TO L SIDE, CALENDER MACHINE OPERATOR HELPER IN USE, VITALS BEING MONITORED, WILL MONITOR CLOSELY, RAILS UP X3, BED IN LOW POSITION.
[2018-03-29] VITALS (23 sets, daily range): BP systolic 97–127; BP diastolic 56–70; TEMP 97–98.1
--- NOTE | 2018-03-29 02:00 | NUR ---
PT RESTING QUIETLY IN BED WITH EYES CLOSED, NO S/S OF PAIN OR DISTRESS NOTED, RESP RATE 14 NONLABORED, O2 AT 3LPM VIA NC WITH SAT OF 100%, 16F MESA PATENT DRAINING TO BEDSIDE, 18G IV INTACT TO R AC WITH D5W WITH 20MEQ KCL INFUSING AT 50ML/HR WITH NO PROBLEMS NOTED TO SITE, REPOSITIONED TO BACK, HEEL PROTECTORS IN USE, FEET ELEVATED ON PILLOW, PEG TUBE INTACT TO ABD. WILL MONITOR, RAILS UP X3, BED IN LOW POSITION.
--- NOTE | 2018-03-29 04:00 | NUR ---
RESTING WITH EYES CLOSED, NO DISTRESS NOTED, MOUTH CARE GIVEN, PT REPOSITIONED, WILL MONITOR CLOSELY, RAILS UP, BED IN LOW POSITION.
[2018-03-29 05:58] LABS: PLATELET COUNT 284 K/uL (142-355)
[2018-03-29 06:13] LABS: POTASSIUM 3.5 mmol/L (3.6-5.2)
--- NOTE | 2018-03-29 06:15 | NUR ---
PT RESTING WITH EYES CLOSED, NO DISTRESS NOTED, IV INTACT, MESA PATENT DRAINING TO BEDSIDE, RESP RATE NONLABORED, HEEL PROTECTORS IN USE. 10-15ML OF YELLOW RESIDUAL NOTED VIA PEG TUBE, FLUSHED WITH SMALL AMOUNT OF WATER AND SEEMS TO BE PRESSURE FROM PEG TUBE. ONLY GAVE PT 100ML TWO FLORECITA HN AND FLUSHED AFTER WITH 30ML WATER ALONG WITH MORNING MEDS. PT REPOSITIONED TO R SIDE, WILL MONITOR, RAILS UP X3, BED IN LOW POSITION.
--- NOTE | 2018-03-29 07:03 | NUR ---
I talked with nursing yesterday as well as Oj BARRIENTOS about patient and to supplement with 2CALHN instead of Ensure and Anu doing a ST evlaution and aspirated on food. Talked with Baldo MALCOLM this am about checking the BUN and Creat while on 2CALHN. will folowup as needed.
--- NOTE | 2018-03-29 08:20 | NUR ---
RECIEVED REPORT PT RESTING QUIETLY HOB UP EYES CLOSED RESP EVEN SAT 100%.LUNG SOUNDS CLEAR DIMISHED BASES REMOVED O2 WILL CONTINUE TO MONITOR BLOOD SUGAR 174 RECIEVED 2 UNITS REGULAR INSULIN SQ. HOB UP .
--- NOTE | 2018-03-29 10:25 | NUR ---
PT RECIEVED AM MEDS VIA PEG, CHECKED RESIDUAL 90 ML GASTRIC SECRETIONS. MEDS CRUSHED AND GIVEN BY PEG TUBE. FOLLOWED BY 30 ML WATER FOR FLUSH. PT RECIEVED BED BATH BED CHANGED ASSISTED BY MARGUERITE DE LA RCUZ FROM [facility] HERE TO CHECK PATIENT. JUDE GUY VISITED THIS AM,. RECIEVED NEW ORDERS.
--- NOTE | 2018-03-29 13:00 | NUR ---
HOB UP CHECKED PEG 15 ML RESIDUAL PATIENT MOVE UP HIGHER IN BED. RECIEVED I CAN 2 FLORECITA 60 ML WATER BEFORE AND AFTER. PT GAYLE WELL. FED VIA GRAVITY PEG WORKED FINE.
--- NOTE | 2018-03-29 15:02 | NUR ---
PT MOVED TO CHAIR EARLIER. PT BECOMING ANXIOUS TRYING TO GET OUT OF CHAIR BECOMING LOUD CALLING OUT. CHECKED PT. PT RECIEVED ATIVAN 1 MG IV FOR AGITATION. RESP DEPT HERE APPLIED VEST FOR CPT VEST. PT GAYLE WELL SITTING UP IN CHAIR. CONTINUES TO SAT WELL ON ROOM AIR WILL MONITOR.
--- NOTE | 2018-03-29 16:39 | NUR ---
CONTINUES UP IN CHAIR SLEPT FOR A SHORT TIME. REPOSITIONED, BLOOD SUGAR 263 RECIEVED 6 UNITS REGULAR INSULIN SQ. PT RECIEVED MEDS WITH 30 ML WATER BEFORE AND AFTER MED PASS GAYLE WELL SITTING UP IN CHAIR.
--- NOTE | 2018-03-29 18:29 | NUR ---
BACK TO BED, AWAKE ,TALKING. SAT REMAINS GOOD 96% ON ROOM AIR.
--- NOTE | 2018-03-29 23:47 | NUR ---
PT RECEIVED HIS PM MEDS VIA G TUBE. PT'S G TUBE WAS FLUSHED WITH 120 ML OF WATER. PT WAS REPOSITIONED HF TO PREVENT ASPIRATION.
[2018-03-30] VITALS (21 sets, daily range): BP systolic 94–148; BP diastolic 46–84; TEMP 97.5–98.1
--- NOTE | 2018-03-30 04:59 | NUR ---
PT HAS RESTED QUIETLY. NOW PT IS AWAKE AND TALKATIVE. PT HAS BEEN REPOSITIONED EVERY TWO HOURS AND ORAL CARE HAS BEEN GIVEN.
--- NOTE | 2018-03-30 08:00 | NUR ---
AM ASSESSEMENT DONE RESTING IN BED AWAKE. SAT 95% ON ROOM AIR LUNG CLEAR UPPER LOBES DIMISHED BASES. REPOSITIONED IN BED PT CALLING OUT TALKING UNABLE TO UNDERSTAND.
[2018-03-30 08:12] LABS: PLATELET COUNT 311 K/uL (142-355)
[2018-03-30 08:24] LABS: POTASSIUM 4.3 mmol/L (3.6-5.2)
--- NOTE | 2018-03-30 09:00 | NUR ---
MEDS CRUSHED PT UP IN BED CHECKED RESIDUAL. 60 ML RESIDUAL. GAVE MEDS WITH SMALL AMOUNT OF WATER. HOB UP. WILL HOLD FEEDING FOR NOW UNTIL RESIDUAL GOES DOWN.
--- NOTE | 2018-03-30 11:36 | NUR ---
PT RESTLESS CALLING OUT ALMOST YELLING. GEODON 10 MG IM LEFT GM FOR AGITATION. HOB REMAINS UP.
--- NOTE | 2018-03-30 12:30 | NUR ---
CHECKED RESIDUAL. NONE PT MOVED UP IN BED PT RECIEVED 1/2 CAN TWO FLORECITA FLUSHED WITH WATER BEFORE AND AFTER. SITTING UP HIGH FOWLERS. MAY NEED TO FEED MORE FREQUENT WITH SMALLER AMOUNTS.
--- NOTE | 2018-03-30 14:00 | NUR ---
PT RESTING IN BED HOB UP M HIGH GAYLE FEEDING WELL. MEDS EFFECTIVE.
--- NOTE | 2018-03-30 16:15 | NUR ---
PT GETTING LOUD CALLING OUT FROWNS, UNABLE TO UNDERSTAND, RESTLESS GAVE ATIVAN 1 MG IVP. WAITED 15 MIN MEDS BEGIN TO TAKE EFFECT. CHECKED PEG TUBE NO RESIDUAL RECIEVED 4 PM MEDS GAVE ANOTHER 1/2 CAN TWO FLORECITA. PT UP IN BED HIGH FOWLERS. WILL CONTINUE TO MONITOR.
--- NOTE | 2018-03-30 16:49 | NUR ---
RESTING BETTER MEDS EFFECTIVE. HEAD OF BED UP.
--- NOTE | 2018-03-30 18:14 | NUR ---
RESTING IN BED, TALKING LOW TONES APPEARS CALM. SAT 98% ON ROOM. NO ACUTE DISTRESS.
[2018-03-31] VITALS (18 sets, daily range): BP systolic 14–170; BP diastolic 49–84; TEMP 97.7–98.8
--- NOTE | 2018-03-31 07:08 | NUR ---
03/30/18 2100 PT TOLERATED 1/2 CAN OF TWO FLORECITA AND 60CC FLUSH BEFORE AND AFTER.
--- NOTE | 2018-03-31 07:09 | NUR ---
03/31/18 0100 PT HAD 50CC RESIDUAL FROM PEG TUBE. FEEDING HELD AT THIS TIME.
--- NOTE | 2018-03-31 07:10 | NUR ---
03/31/18 0500 PT TOLERATED FEEDING OF TWO FLORECITA AND 60 CC FLUSH BEFORE AND AFTER.
--- NOTE | 2018-03-31 08:50 | NUR ---
Pt. EYES OPEN AND FIXED. Pt. RESPOND TO HARD CHEST RUB. B/P 67/45. HR 71 O2 SAT 98. O2 APPLIED AT 2L PER NC.
--- NOTE | 2018-03-31 09:00 | NUR ---
NOTIFIED JUDE LIZ NP. INSTRUCTED TO CALL DR. GARCIA. DR. GARCIA NOTIFIED.
[2018-03-31 09:21] LABS: PLATELET COUNT 318 K/uL (142-355)
--- NOTE | 2018-03-31 10:00 | NUR ---
Pt. OPEN EYES WITH FIRM CHEST RUB.
[2018-03-31 10:07] LABS: POTASSIUM 4.2 mmol/L (3.6-5.2)
--- NOTE | 2018-03-31 12:00 | NUR ---
Pt. OPEN EYES AND TALKING AT TIMES.
--- NOTE | 2018-03-31 20:44 | NUR ---
20 CC'S OF RESIDUAL NOTED FROM PEG TUBE. SCHEDULED MEDS WERE CRUSHED AND ADMINISTERED AT THIS TIME THROUGH PEG TUBE. FEEDING WITH ONE CAN OF 2 FLORECITA ALSO ADMINISTERED AT THIS TIME. PT TOLERATAED WELL. HOB ELEVATED AT THIS TIME
[2018-04-01] VITALS (18 sets, daily range): BP systolic 69–106; BP diastolic 39–66; TEMP 97–101.8
--- NOTE | 2018-04-01 00:08 | NUR ---
PT TURNED AND REPOSITIONED AT THIS TIME
--- NOTE | 2018-04-01 03:47 | NUR ---
NO RESIDUAL NOTED FROM PEG TUBE. FEEDING WITH 1 CAN OF 2 FLORECITA ADMINISTERED AT THIS TIME WITH 6O MLS OF WATER BEFORE AND AFTER FEEDING. PT TOLERATED WELL. HOB ELEVATED AT THIS TIME.
--- NOTE | 2018-04-01 06:23 | NUR ---
PT TURNED AND REPOSITIONED AT THIS TIME. SMALL BM NOTED TO CHUX. PT CLEANED AND CHANGED, LINENS CHANGED AT THIS TIME TOO.
[2018-04-01 18:45] LABS: PLATELET COUNT 198 K/uL (142-355)
[2018-04-01 19:00] LABS: POTASSIUM 4.2 mmol/L (3.6-5.2)
--- NOTE | 2018-04-01 20:45 | NUR ---
DR. BROOKLYNN OLIVER NOTIFIED OF HYPOTENSION, BP 84/49. ORDER RECEIVED TO BOLUS 200CC NS, THEN NS AT 100CC/HR.
[2018-04-02] VITALS (24 sets, daily range): BP systolic 64–99; BP diastolic 46–64; TEMP 97.5–100.4
--- NOTE | 2018-04-02 00:15 | NUR ---
DR. BROOKLYNN OLIVER NOTIFIED OF PATIENT'S HYPOTENSION, BP 72/53. ORDER RECEIVED FOR 500CC NS BOLUS.
--- NOTE | 2018-04-02 00:30 | NUR ---
PATIENT GIVEN 237ML 2CAL HN VIA PEG TUBE. TOLERATED WELL.
[2018-04-02 05:25] LABS: PLATELET COUNT 181 K/uL (142-355)
[2018-04-02 05:40] LABS: POTASSIUM 3.9 mmol/L (3.6-5.2)
--- NOTE | 2018-04-02 09:15 | NUR ---
SMALL AMOUNT OF YELLOW DRAINAGE NOTED AROUND G TUBE. AREA CLEANED WITH CHLORAPREP SWABSTICKS. DRESSING APPLIED AROUND G TUBE. PT TOLERATED WELL. NO RESIDUAL NOTED FROM G TUBE. AM MEDS GIVEN. NAD NOTED.
[2018-04-03] VITALS (25 sets, daily range): BP systolic 74–124; BP diastolic 43–75; TEMP 97.4–98.7
[2018-04-03 05:30] LABS: PLATELET COUNT 156 K/uL (142-355)
[2018-04-03 05:37] LABS: POTASSIUM 3.5 mmol/L (3.6-5.2)
--- NOTE | 2018-04-03 08:47 | NUR ---
RECIEVED REPORT PT RESTING QUIETLY. HOB UP. AM ASSESSEMENT DONE JUDE LIZ DIRECTOR OF MATERNITY SERVICES VISITED. CHECKED PT RECIEVED ORDERS. CHEST X RAY DONE.
--- NOTE | 2018-04-03 09:30 | NUR ---
PT INC OF SOFT BROWN STOOL, PT TURNED AND CLEANED RICHA CARE DONE. SAT UP HIGH FOWLERS POSITION CHECKED PEG NO RESIDUAL, NO PT RECIEVED AM MEDS AND 1 CAN OF 2 FLORECITA VIA PEG. HOB UP HIGH FOWLERS, REMOVED O2 NC. SAT 96% ON ROOM AIR WILL CONTINUE TO MONITOR.
--- NOTE | 2018-04-03 12:00 | NUR ---
REPORTED TO JUDE LIZ AUTOMATIC PAINT SPRAYER OPERATOR LOWER B/P READING , INCREASED IV FLUIDS TO 200 ML HR. PT GAYLE WELL REPOSITIONED IN BED. MEDS CRUSHED AND GIVEN BY PEG EARLIER. HOB UP. PT CONTINUES TO BE INC LARGE AMOUNT SOFT BROWN STOOL. RICHA CARE DONE. NOTED RED AREA TO RICHA AREA SCALD. RICHA CARE DONE. B/P 98/43
--- NOTE | 2018-04-03 15:00 | NUR ---
CONTINUES TO PASS LARGE AMOUNT SOFT BROWN STOOL. RICHA CARE DONE. CHECKED PEG 60 ML RESIDUAL WILL HOLD FEEDING UNTIL A LITTLE LATER. B/P 90/50. RECIEVED ORDERS TO DISCONTINUE MEDS HYDRALAZINE. CONTINUE TO HAVE GOOD URINE OUTPUT, RECIEVED LASIX 40 THIS AM.
--- NOTE | 2018-04-03 18:00 | NUR ---
HOB UP PT RECIEVED MED VIA PEG. LASIX HELD. B/P /. EMPTIED MESA CATH 2550 ML URINE. PT CLEANED AGAIN INC SOFT BROWN STOOL. IV FLUIDS AT 100 ML ORDERED WILL CONTINUE TO MONITOR. HOB UP. PT HAS TOLERATED BEING OFF O2 WELL SAT ALL DAY 92 - 96% ON ROOM AIR.
[2018-04-04] VITALS (18 sets, daily range): BP systolic 80–117; BP diastolic 45–77; TEMP 97.6–98.8
[2018-04-04 05:59] LABS: PLATELET COUNT 180 K/uL (142-355)
[2018-04-04 06:39] LABS: POTASSIUM 3.8 mmol/L (3.6-5.2)
[2018-04-04] MEDS ORDERED: CALC500T57 PO (08:37)
--- NOTE | 2018-04-04 10:12 | NUR ---
1000 BP LOW 80/51 - REPORTED TO BROOKS HAMEED 1005 BP 84/51 - PT ALERT AND TALKING/SMILING - NEW ORDERS RECEIVED TO BOLUS 250ML NS NOW. HOLD ALL MEDS THAT MAY DECREASE BP. BP 1010 - 111/77 TOLERATING BOLUS WELL. BP 1025 - 114/70
--- NOTE | 2018-04-04 10:30 | NUR ---
PEG PLACEMENT VERIFIED BY AIR BOLUS. NO RESIDUAL NOTED PRIOR TO FEEDING. 1 CAN 2 FLORECITA HHN GIVEN WITH 60ML FLUSH BEFORE AND AFTER. REMOVED 4X4 FROM PEG SITE AND CLEANED AREA WITH NS. CLEAN 4X4 PLACED AT PEG SITE. AREA APPEARS PINK AND IS NOTED TO BE TENDER.
--- NOTE | 2018-04-04 10:47 | NUR ---
2150 CLEAR YELLOW URINE EMPTIED FROM MESA.
--- NOTE | 2018-04-04 14:40 | NUR ---
@1200 RECEIVED REPORT FROM MARGUERITE BARGER RN, ASSESSED PT, IVF INFUSING WITHOUT DIFFICULTY, MESA TO BSD WITH LIGHT YELLOW CLOUDY URINE IN DRAINAGE BAG, PT HAD RECENT LARGE SOFT BOWEL MOVEMENT WITH LINEN AND GOWN CHANGED, POSITIONED IN BED FOR COMFORT, PT IN NAD AT THIS TIME. VITAL SIGNS IMPROVING, WILL CONTINUE TO MONITOR PATIENT
--- NOTE | 2018-04-04 18:14 | NUR ---
@ 1840 PT DISCHARGED TO [facility], ATS HERE TO TRANSFER PATIENT BY STRETCHER, PT AWAKE, DISORIENTED, CONFUSED, IV D/C'D @ 1830 TIP INTACT, NO REDNESS SWELLING OR EDEMA NOTED, NAD NOTED AT THIS TIME. CALLED REPORT TO JACKELINE AT 1720 AT [facility], SENT PACKET WITH ATS
== END 2018-04-04 18:45 | DRG 177 ==
LOC: ICU 11:15
PROVIDERS: Emergency Medicine; Internal Medicine; ADMIT Psychiatry & Neurology Psychiatry
DX: J69.0 Pneumonitis due to inhalation of food and vomit (principal); J96.00 Acute respiratory failure, unspecified whether with hypoxia or hypercapnia; E87.1 Hypo-osmolality and hyponatremia; E87.0 Hyperosmolality and hypernatremia; K94.22 Gastrostomy infection; F03.90 Unspecified dementia, unspecified severity, without behavioral disturbance, psychotic disturbance, mood disturbance, and anxiety; E11.9 Type 2 diabetes mellitus without complications; I10 Essential (primary) hypertension; K21.9 Gastro-esophageal reflux disease without esophagitis; E03.8 Other specified hypothyroidism; E86.0 Dehydration; D64.89 Other specified anemias; E78.4 Other hyperlipidemia; E87.5 Hyperkalemia; E83.42 Hypomagnesemia; E83.51 Hypocalcemia; Y83.3 Surgical operation with formation of external stoma as the cause of abnormal reaction of the patient, or of later complication, without mention of misadventure at the time of the procedure; Y92.238 Other place in hospital as the place of occurrence of the external cause; R13.12 Dysphagia, oropharyngeal phase; L89.321 Pressure ulcer of left buttock, stage 1
CPT/HCPCS: 36415; 36600; 51702; 74022; 80053; 80202; 81000; 82272; 82550; 82553; 82805; 82962; 83735; 84484; 85027; 85379; 87070; 87077; 87088; 87205; 93005; 94640; 94664; 94668; 94760; 96367; 96372; J1630; J1650; J1815; J1940; J1956; J2060; J2185; J2543; J2930; J3370; J3475; J3486; J3490